=== PATIENT | male | born 1950 | race Caucasian/White ===

== ENCOUNTER 2021-11-07 16:56 | Outpatient (REF) | payer OTHER, SELFPAY ==
[2021-11-07 18:10] LABS: Basophils Absolute Auto 0.02 K/uL (0.00-0.30); Basophils Percent Auto 0.3 % (0.0-3.0); Eosinophils Absolute Auto 0.07 K/uL (0.00-0.50); Eosinophils Percent Auto 1.2 % (0.0-7.0); Hematocrit 38.8 % (37.0-53.0); Hemoglobin* 12.4 gm/dL (13.5-17.5); Immature Granulocytes Abs Auto 0.01 K/uL (0.00-0.30); Lymphocytes Absolute Auto 1.72 K/uL (0.90-2.90); Lymphocytes Percent Auto 28.7 % (20-44); Mean Corpuscular HGB Conc 32 gm/dL (32-36); Mean Corpuscular Hemoglobin 29 pg (26-34); Mean Corpuscular Volume 90 fL (80-100); Monocytes Percent Auto 7.8 % (0.0-11.0); Neutrophils Absolute Auto 3.71 K/uL (1.7-7.0); Neutrophils Percent Auto 61.8 % (42.0-72.0); Platelet Count* 159 K/uL (140-440); RDW Coefficient of Variation % 15.7 % (11.5-15.5); Red Blood Count 4.31 m/uL (4.30-5.90)
[2021-11-07 18:11] LABS: Appearance Urine Slightly Cloudy (Clear); Bilirubin Urine Negative (Negative); Blood Urine 3+ (Negative); Color Urine Yellow (Yellow); Glucose Urine 2+ (Negative); Ketones Urine Negative (Negative); Leukocyte Esterase Urine 1+ (Negative); Nitrite Urine Negative (Negative); Protein Urine 2+ (Negative); Urobilinogen Urine 0.2 (0.2-1.0); pH Urine 5.5 (5.0-8.5)
[2021-11-07 18:13] LABS: Slide Review Reflex No
[2021-11-07 18:36] LABS: Albumin* 3.6 g/dL (3.3-5.0)
[2021-11-07 18:37] LABS: Chloride* 100 mmol/L (96-114); Potassium* 4.7 mmol/L (3.6-5.1); Sodium* 133 mmol/L (135-149)
[2021-11-07 18:39] LABS: Bilirubin Total* 0.4 mg/dL (0.1-1.5); Creatinine* 0.7 mg/dL (0.5-1.5); Estimated Glomerular Filt Rate 99 ml/min
[2021-11-07 18:40] LABS: Alanine Aminotransferase* 21 U/L (4-50); Alkaline Phosphatase* 68 U/L (40-150); Aspartate Amino Transferase* 22 U/L (12-35); Blood Urea Nitrogen* 18 mg/dL (7-30); Calcium* 8.7 mg/dL (8.4-10.6); Carbon Dioxide* 24 mmol/L (20-32); Glucose* 299 mg/dL (60-115); Total Protein* 6.7 g/dL (6.0-8.3)
[2021-11-07 19:20] LABS: Bacteria Urine Many
== END 2021-11-07 16:57 | disposition home or self-care (01) ==
LOC: NPINS 16:56
PROVIDERS: Visit Provider Nurse Practitioner Adult Health
DX: R82.90 Unspecified abnormal findings in urine (principal)
CPT/HCPCS: 80053; 81003; 81015; 85025; 87086; 87186

== ENCOUNTER 2021-11-25 17:35 | Outpatient (CLI) | payer OTHER, SELFPAY | END 2021-11-25 17:36 | disposition home or self-care (01) | LOC: AMB 12-08 15:49 | PROVIDERS: Visit Provider Emergency Medicine Emergency Medical Services | DX: R10.9 Unspecified abdominal pain (principal) | CPT/HCPCS: A0425; A0429 ==

== ENCOUNTER 2021-11-27 13:20 | Outpatient (CLI) | payer OTHER, SELFPAY | END 2021-11-27 13:21 | disposition home or self-care (01) | LOC: AMB 12-10 18:24 | PROVIDERS: Visit Provider Family Medicine | DX: R53.1 Weakness (principal) | CPT/HCPCS: A0425; A0427 ==

== ENCOUNTER 2022-09-20 15:10 | Outpatient (REF) | payer SELFPAY ==
[2022-09-20 16:18] LABS: Appearance Urine Clear (Clear); Bilirubin Urine Negative (Negative); Blood Urine 3+ (Negative); Color Urine Yellow (Yellow); Glucose Urine Negative (Negative); Ketones Urine Negative (Negative); Leukocyte Esterase Urine 3+ (Negative); Nitrite Urine Positive (Negative); Protein Urine 3+ (Negative); pH Urine 7.5 (5.0-8.5)
[2022-09-20 16:34] LABS: Bacteria Urine Many; RBC Urine >100 (0-2); WBC Urine >100 (0-5)
[2022-09-20 16:43] LABS: Creatinine Urine 102.2 mg/dL
[2022-09-20 17:34] LABS: Microalbumin Creatinine Ratio 820 mg/g (0-30); Microalbumin Urine 84 mg/dL
== END 2022-09-20 15:11 | disposition home or self-care (01) ==
LOC: NPINS 15:10
PROVIDERS: PCP Family Medicine; Visit Provider Family Medicine
DX: R30.0 Dysuria (principal)
CPT/HCPCS: 81001; 82043; 82570; 87086; 87186

== ENCOUNTER 2022-09-26 21:17 | Outpatient (CLI) | payer OTHER, SELFPAY | END 2022-09-26 21:18 | disposition home or self-care (01) | PROVIDERS: Visit Provider Family Medicine | DX: E11.65 Type 2 diabetes mellitus with hyperglycemia (principal) | CPT/HCPCS: A0425; A0429 ==

== ENCOUNTER 2022-11-26 15:10 | Outpatient (REF) | payer SELFPAY ==
[2022-11-26 16:29] LABS: Appearance Urine Cloudy (Clear); Bilirubin Urine Negative (Negative); Blood Urine 3+ (Negative); Color Urine Yellow (Yellow); Glucose Urine 1+ (Negative); Ketones Urine Negative (Negative); Leukocyte Esterase Urine 1+ (Negative); Nitrite Urine Negative (Negative); Protein Urine 2+ (Negative); Specific Gravity Urine 1.015 (1.000-1.030); Urobilinogen Urine 0.2 (0.2-1.0)
[2022-11-26 17:00] LABS: Bacteria Urine Moderate; Squamous Epithelial Cell Urine Few (None-Few)
== END 2022-11-26 15:11 | disposition home or self-care (01) ==
LOC: NPINS 15:10
PROVIDERS: Visit Provider Family Medicine
DX: R30.9 Painful micturition, unspecified (principal)
CPT/HCPCS: 81001; 87086; 87186

== ENCOUNTER 2023-10-08 11:19 | Outpatient (CLI) | payer OTHER, SELFPAY ==
--- OUTSIDE RECORDS SUMMARY | 2023-10-19 04:14 | XMS_ITS | Referral Summary ---
Author Organization [facility] Address [address] [place] [address]. [place] [address] Care Team Providers Care Customs Consultant Name Role Phone Abilio Isbell DO Primary Care Provider [phone] Allergies Active Allergy Reactions Criticality Noted Date Comments Methadone 09/07/2018 Tramadol 09/07/2018 Medications Medication Sig Dispensed Refills Start Date End Date Status potassium chloride ER (K-DUR/KLOR-CON M) 20 MEQ CR tablet Take 10 mEq by mouth daily Active trospium (SANCTURA) 20 MG tablet Take 20 mg by mouth 2 times daily Active lactobacillus acidophilus & bulgar (LACTINEX) chewable tablet Take 1 tablet by mouth 2 times daily Active naproxen (NAPROSYN) 250 MG tablet Take 250 mg by mouth daily as needed for moderate pain Active ARIPiprazole (ABILIFY) 1 MG/ML SOLN solutionIndications:Fr ee intraperitoneal air 30 mLs (30 mg) by Per J Tube route daily 09/17/2018 Active vitamin C 500 MG TABSIndications:Free intraperitoneal air 1 tablet (500 mg) by Per J Tube route 2 times daily 09/16/2018 Active calcium carbonate 1250 MG/5ML SUSP suspensionIndications: Free intraperitoneal air 5 mLs (1,250 mg) by Per J Tube route 2 times daily 09/16/2018 Active vitamin D3 1000 units TABSIndications:Free intraperitoneal air 1,000 Units by Per J Tube route 3 times daily 09/16/2018 Active citalopram (CELEXA) 20 MG tabletIndications:Free intraperitoneal air 1 tablet (20 mg) by Oral or Feeding Tube route daily 09/17/2018 Active ferrous sulfate 300 (60 Fe) MG/5ML syrupIndications:Free intraperitoneal air 5 mLs (300 mg) by Per J Tube route 3 times daily 09/16/2018 Active fosfomycin (MONUROL) 3 g PacketIndications:Urin edd Tract Infection,ppx Take 2 packets (6 g) by mouth every 14 days 09/30/2018 Active insulin glargine (LANTUS SOLOSTAR PEN) 100 UNIT/ML penIndications:Free intraperitoneal air Inject 20 Units Subcutaneous every morning 09/17/2018 Active metFORMIN (GLUCOPHAGE) 1000 MG tabletIndications:Free intraperitoneal air Take 1 tablet (1,000 mg) by mouth 2 times daily (with meals) 09/16/2018 Active multivitamins w/minerals (CERTAVITE) liquidIndications:Free intraperitoneal air 15 mLs by Per Feeding Tube route daily 09/17/2018 Active primidone (MYSOLINE) 50 MG tabletIndications:Free intraperitoneal air 1 tablet (50 mg) by Oral or Feeding Tube route 2 times daily 09/16/2018 Active sulfamethoxazole-trime thoprim (BACTRIM DS/SEPTRA DS) 800-160 MG tabletIndications:Urin edd Tract Infection,ppx Take 1 tablet by mouth every 14 days 09/30/2018 Active acetaminophen (TYLENOL) 32 mg/mL liquidIndications:Free intraperitoneal air 31.25 mLs (1,000 mg) by Per J Tube route every 8 hours 09/16/2018 Active artificial saliva (BIOTENE MT) SOLN solutionIndications:Fr ee intraperitoneal air Swish and spit 1 mL (1 spray) in mouth 4 times daily 09/16/2018 Active bacitracin 500 UNIT/GM OINTIndications:Free intraperitoneal air Apply topically 2 times daily 09/16/2018 Active enoxaparin (LOVENOX) 40 MG/0.4ML syringeIndications:Mitch e intraperitoneal air Inject 0.4 mLs (40 mg) Subcutaneous every 24 hours 09/17/2018 Active hydrOXYzine (ATARAX) 25 MG tabletIndications:Free intraperitoneal air Take 1 tablet (25 mg) by mouth every 6 hours as needed for itching, anxiety or other (pain) 09/16/2018 Active insulin aspart (NOVOLOG PEN) 100 UNIT/ML penIndications:Free intraperitoneal air Inject 1-12 Units Subcutaneous every 4 hours 09/16/2018 Active ondansetron (ZOFRAN-ODT) 4 MG ODT tabIndications:Free intraperitoneal air Take 1 tablet (4 mg) by mouth every 6 hours as needed for nausea or vomiting 09/16/2018 Active pantoprazole (PROTONIX) 40 mg IV push injectionIndications:F ree intraperitoneal air Inject 40 mg into the vein 2 times daily 09/16/2018 Active protein modular (PROSOURCE TF) LIQDIndications:Free intraperitoneal air 1 packet by Per Feeding Tube route 3 times daily (with meals) 09/16/2018 Active baclofen 5 MG TABSIndications:Free intraperitoneal air 5 mg by Per J Tube route daily 09/17/2018 Active baclofen (LIORESAL) 10 MG tabletIndications:Free intraperitoneal air 1 tablet (10 mg) by Per J Tube route every evening 09/16/2018 Active Active Problems Problem Noted Date Diagnosed Date Free intraperitoneal air 09/07/2018 Resolved Problems Problem Noted Date Diagnosed Date Resolved Date Cervicalgia 07/17/2006 08/19/2006 Lumbago 04/17/2006 07/12/2006 Cervicalgia 04/17/2006 07/12/2006 Social History Tobacco Use Types Packs/Day Years Used Date Smoking Tobacco: Former Tobacco Cessation:Counseling Given: No Alcohol Use Standard Drinks/Week Comments Not Currently 0 (1 standard drink = 0.6 oz pur e alcohol) Sex and Gender Information Value Date Recorded Sex Assigned at Not on file Gender Identity Not on file Sexual Orientation Not on file Last Filed Vital Signs Vital Sign Reading Time Taken Comments Blood Pressure 136/64 09/18/2018 10:38 PM CDT Pulse 92 09/16/2018 11:00 PM CDT Temperature 35.7 ??C (96.2 ??F) 09/18/2018 1 0:38 PM CDT Respiratory Rate 16 09/18/2018 10:3 8 PM CDT Oxygen Saturation 91% 09/18/2018 10: 38 PM CDT Inhaled Oxygen Concentration - - Weight 104.2 kg (229 lb 11.2 oz) 09/18/2018 5:49 PM CDT Height - - Body Mass Index - - Plan of Treatment Not on file Additional Health Concerns Infection Onset Date Last Indicated ESBL Comment:E.coli 08/27/15 urine (per [place] nurse Foster) 09/17/20182018 Advance Directives For more information, please contact: [phone] Documents on File Type Date Recorded Patient Commercial Account Executive Expl anation Power of Adding Machine Servicer 09/10/2018 5:27 PM POA f orm * Full Code (Latest Code Status on File) Date Activated Date Inactivated Comments 09/07/2018 1:07 AM 09/19/2018 11:43 AM Question Answer Comments Code status determined by: Discussion with magnolia mathis/legal decision maker Care Teams Customs Consultant Relationship Specialty Start Date End Date Abilio Isbell DO [facility] [place] [id number] PCP - General Physical Medicine and Rehabilitation 09/06/18
--- OUTSIDE RECORDS SUMMARY | 2023-10-19 04:14 | XMS_ITS | Clinical Summary ---
Author Organization [facility] Address [address] [place] [address]. [place] [address] Care Team Providers Care Cement Finisher Helper Name Role Phone Abilio Isbell DO Primary Care Provider [phone] Allergies Active Allergy Reactions Criticality Noted Date [...] Last Indicated ESBL Comment:E.coli 08/27/15 urine (per [place] nurse Foster) 09/17/20182018 Advance Directives For more information, please contact: [phone] Documents on File Type Date Recorded Patient Towboat Engineer Expl anation Power of Material Coordinator 09/10/2018 5:27 PM POA f orm * Full Code (Latest Code Status on File) Date Activated Date Inactivated Comments 09/07/2018 1:07 AM 09/19/2018 11:43 AM Question Answer Comments Code status determined by: Discussion with magnolia mathis/legal decision maker Care Teams Cement Finisher Helper Relationship Specialty Start Date End Date Abilio Isbell DO [facility] [place] [id number] PCP - General Physical Medicine and Rehabilitation 09/06/18
== END 2023-10-08 11:20 | disposition home or self-care (01) ==
LOC: AMB 10-19 04:12
PROVIDERS: PCP Family Medicine; Visit Provider Emergency Medicine Emergency Medical Services
DX: R53.1 Weakness (principal); M54.9 Dorsalgia, unspecified
CPT/HCPCS: A0425; A0427

== ENCOUNTER 2024-05-12 12:16 | Outpatient (REF) | payer OTHER, SELFPAY ==
[2024-05-12 14:41] LABS: PCR FLU A Negative PCR FLU A (Negative); PCR FLU B Negative PCR FLU B (Negative); PCR RSV Negative PCR RSV (Negative); SARS PCR* Negative SARS-CoV-2 (Negative)
== END 2024-05-12 12:17 | disposition home or self-care (01) ==
LOC: NPINS 12:16
PROVIDERS: PCP Family Medicine; Visit Provider Nurse Practitioner Gerontology
DX: R09.81 Nasal congestion (principal)
CPT/HCPCS: 87631

== ENCOUNTER 2024-11-10 07:45 | Outpatient (CLI) | payer OTHER, SELFPAY | END 2024-11-10 07:46 | disposition home or self-care (01) | LOC: AMB 11-12 11:04 | PROVIDERS: PCP Family Medicine; Visit Provider Family Medicine | DX: R10.9 Unspecified abdominal pain (principal) | CPT/HCPCS: A0425; A0427 ==

== ENCOUNTER 2025-01-25 15:04 | Outpatient (CLI) | payer OTHER, SELFPAY | END 2025-01-25 15:05 | disposition home or self-care (01) | LOC: AMB 01-27 09:45 | PROVIDERS: PCP Family Medicine; Visit Provider Emergency Medicine | DX: N50.89 Other specified disorders of the male genital organs (principal); Z46.6 Encounter for fitting and adjustment of urinary device | CPT/HCPCS: A0425; A0427 ==